=== PATIENT | female | born 1950 | race Hispanic/Latino ===

== ENCOUNTER 2017-11-26 13:54 | Emergency (ER) | payer OTHER ==
[2017-11-26 14:30] VITALS: TEMP 98.3; O2SAT 98
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
[2017-11-26 14:51] LABS: VENOUS BLOOD GAS PO2 124 mm/Hg (30-55); VENOUS BLOOD PH 7.46 (7.32-7.43)
[2017-11-26 15:43] VITALS: BP 137/80; PULSE 76; RESP 18
== END 2017-11-26 15:43 | disposition home or self-care (01) ==
LOC: ED 13:54
DX: T58.8X1A Toxic effect of carbon monoxide from other source, accidental (unintentional), initial encounter (principal); Y92.009 Unspecified place in unspecified non-institutional (private) residence as the place of occurrence of the external cause